=== PATIENT | female | born 1985 | race Caucasian/White ===

== ENCOUNTER → 2016-10-03 | Outpatient (CLI) | payer OTHER ==
[~2016-10-03] MED LIST: MOTRIN800 MG PO; MULTIVITAMIN PO; NORCO 5-325 MG1 TAB PO; PREVACID15 MG PO; SURFAK240 MG PO; TUMS200 MG PO
== END | disposition disaster alternative care site (69) ==
LOC: GBCOE 13:19
DX: Z12.31 Encounter for screening mammogram for malignant neoplasm of breast (principal); Z80.3 Family history of malignant neoplasm of breast
CPT/HCPCS: G0202